=== PATIENT | female | born 1995 | race Caucasian/White ===

== ENCOUNTER 2020-11-09 00:40 | Emergency (ER) | payer OTHER, SELFPAY ==
[2020-11-09 00:43] VITALS: BP 127/86; PULSE 99; RESP 20; TEMP 36.9; O2SAT 99; BMI 33.2
--- NOTE | 2020-11-09 00:59 | ED.URI ---
HPI - URI/Sore Throat General Chief Complaint: Upper Respiratory Symptoms Stated Complaint: Cough/Sore throat Time Seen by Provider: 11/09/20 00:58 Source: patient Mode of arrival: ambulatory Limitations: no limitations History of Present Illness HPI Narrative: Patient with history of asthma complaining of sore throat since yesterday feeling burning in the throat did not use her inhaler patient is saturating 99% at room air with occasional dry cough no fever no chills patient already been vaccinated for COVID-19 3 months ago no other family member sick Related Data Previous Rx's Medication Instructions Recorded azithromycin [Zithromax] 250 mg PO DAILY 4 Days #4 tab 11/09/20 Allergies Allergy/AdvReac Type Severity Reaction Status Date / Time amoxicillin [AMOXICILLIN] Allergy Unknown FAMILY HX Unverified 11/09/20 00:50 OF ALLERGY cephalexin [From KEFLEX] Allergy Unknown HIVES Unverified 11/09/20 00:50 penicillin V Allergy Unknown no known Verified 11/09/20 00:50 reaction but avoids due to strong FHx of PCN saira Penicillins [PENICILLINS] Allergy Unknown FAMILY HX Unverified 11/09/20 00:50 OF ALLERGY-THROAT CLOSES Sulfa (Sulfonamide Allergy Unknown WELTS Unverified 11/09/20 00:50 Antibiotics) [SULFA(SULFONAMIDE ANTIBIOTICS)] Review of Systems Review of Systems: Yes all other systems are reviewed and are negative PMFSH Past Medical History Medical History Asthma PCOS (polycystic ovarian syndrome) SVT (supraventricular tachycardia) Social History Social History Patient : No Physical Exam Vital Signs: Vital Signs: Last Vital Signs Temp 98.5 F 11/09/20 00:43 Pulse 99 11/09/20 00:43 Resp 20 11/09/20 00:43 BP 127/86 11/09/20 00:43 Pulse Ox 99 11/09/20 00:43 Body Mass Index 33.2 Const: General: comfortable and no acute distress Orientation/consciousness: patient oriented x3 HENMT: Head: Yes normal to inspection Ears: hearing grossly normal bilaterally General nose exam: Normal external nose present Face and sinus: Yes normal facial exam Mouth: moist mucous membranes and moist mucous membranes abnormal (Slight erythema in posterior pharynx) Eyes: General: appearance normal, both eyes and all related structures Neck: Neck: Yes normal visual inspection Chest: Chest palpation & inspection: normal inspection of the chest Resp: Effort & Inspection: normal respiratory effort Auscultation: clear to auscultation bilaterally, no crackles and no rales Cardio: Rate: regular rate Rhythm: regular rhythm Heart sounds: S1 normal heart sound present and S2 normal heart sound present Neuro: General: patient oriented x3 MDM - URI/Sore Throat MDM Narrative Medical decision making narrative: Patient with possible strep throat, patient wanted COVID-19 test and although she got vaccine and has no other symptoms will check her for COVID Discharge Plan Discharge Clinical Impression: Pharyngitis Qualifiers: Pharyngitis/tonsillitis etiology: other specified organisms Qualified Code(s): J02.8 - Acute pharyngitis due to other specified organisms Patient Disposition: Home, Self-Care Instructions: Pharyngitis (ED) Additional Instructions: Take antibiotic as prescribed. And follow-up with PCP Prescriptions: New azithromycin [Zithromax] 250 mg tablet 250 mg PO DAILY 4 Days Qty: 4 RF: 0
[2020-11-09] MEDS: guaiFEN/Codeine SF 200/20/10ML 10 ML LIQUID PO (01:29)
[2020-11-09] MEDS: Azithromycin 500 MG TABLET PO (01:29)
[2020-11-09 01:50] LABS: Strep A Nucleic Acid Negative (Negative)
[2020-11-09 02:01] LABS: COVID-19 Test Negative (Negative); IDNOW Serial# 9DD0AD1C
== END 2020-11-09 02:19 | disposition home or self-care (01) ==
LOC: HO.ED 02:13
PROVIDERS: Emergency Provider Internal Medicine
DX: J02.8 Acute pharyngitis due to other specified organisms (principal); Z20.822 Contact with and (suspected) exposure to COVID-19
CPT/HCPCS: 36415; 87635; 87651; 99283

== ENCOUNTER 2021-06-11 22:02 | Emergency (ER) | payer OTHER, SELFPAY ==
[2021-06-11 23:45] VITALS: BP 129/68; PULSE 76; RESP 16; TEMP 37.4; O2SAT 100; BMI 39.0
--- NOTE | 2021-06-11 23:46 | ED.FEMALEGU ---
HPI - Female Genitourinary General Chief complaint: Vaginal Bleeding Stated complaint: heavy vaginal bleeding Time Seen by Provider: 06/12/21 00:56 Source: patient Mode of arrival: ambulatory Limitations: no limitations History of Present Illness HPI Narrative: 25-year-old female presents with heavy vaginal bleeding that started on Sunday. States that she is soaking through multiple tampons and pads per hour with large clots. Is taking a hormone to induce periods as she is trying to get . Patient does report feeling weak and dizzy at times. MD elicited complaint: vaginal bleeding Onset (ago): day(s) (5) Severity: moderate Female Urogenital Radiation: Non-Radiating Severity scale (1-10): 5 Quality of pain: cramping Consistency: intermittent Vaginal discharge: none Vaginal bleeding: heavy and dark red Exacerbating factors: none Associated symptoms: denies other symptoms Sexual activity: Yes Patient : No Related Data Previous Rx's Medication Instructions Recorded azithromycin 250 mg tablet 250 mg PO DAILY 4 Days #4 tab 11/09/20 (Zithromax) Allergies Allergy/AdvReac Type Severity Reaction Status Date / Time amoxicillin [AMOXICILLIN] Allergy Unknown FAMILY HX Unverified 06/11/21 23:49 OF ALLERGY cephalexin [From KEFLEX] Allergy Unknown HIVES Unverified 06/11/21 23:49 penicillin V Allergy Unknown no known Verified 06/11/21 23:49 reaction but avoids due to strong FHx of PCN saira Penicillins [PENICILLINS] Allergy Unknown FAMILY HX Unverified 06/11/21 23:49 OF ALLERGY-THROAT CLOSES Sulfa (Sulfonamide Allergy Unknown WELTS Unverified 06/11/21 23:49 Antibiotics) [SULFA(SULFONAMIDE ANTIBIOTICS)] Review of Systems Review of Systems: Constitutional: No Fever, No Chills ENT/Mouth: No sore throat, No Rhinorrhea Eyes: No Eye Pain, No Redness Cardiovascular: No Chest Pain, No SOB Respiratory: No Cough, No Sputum, No Wheezing Gastrointestinal: positive Nausea, No Vomiting, No Diarrhea, positive abdominal cramping pain, Genitourinary: positive irregular bleeding, No Dysuria, No Urinary Frequency, positive pelvic pain Musculoskeletal: No Myalgias Skin: No rash Neuro: No Weakness, No Headache Psych: No Anxiety/Panic, No Depression Heme/Lymph: No bruising, No Lymphadenopathy Endocrine: No Polyuria, No Polydipsia Yes all other systems are reviewed and are negative [facility] Past Medical History Attestation statement: The following information was validated with the patient. Source: old records reviewed Medical History Asthma PCOS (polycystic ovarian syndrome) SVT (supraventricular tachycardia) Social History Social History Advance Directives: No Patient : No Physical Exam Vital Signs: Vital Signs: Last Vital Signs Temp 99.3 F 06/11/21 23:45 Pulse 76 06/11/21 23:45 Resp 16 06/11/21 23:45 BP 129/68 06/11/21 23:45 Pulse Ox 100 06/11/21 23:45 BMI result Body Mass Index 39.0 Appearance: Alert. Oriented X3. No acute distress. Eyes: Pupils equal, round and reactive to light. ENT: Pharynx normal. Neck: Normal inspection. Neck supple. CVS: Normal heart rate and rhythm. Pulses normal. Respiratory: No respiratory distress. Breath sounds normal. Abdomen: Soft and nontender. Skin: Skin warm and dry. Normal skin color. Normal skin turgor. Extremities: No lower extremity edema. Gait well-balanced well coordinated. Neuro: No motor deficit. No sensory deficit. Cranial nerves 2-12 intact. : External Female Exam: normal external appearance Speculum Exam - Vagina: normal appearance of the vagina, not erythematous, no foreign bodies, no lacerations, no lesions, vaginal bleeding, No tissue present in vagina and no masses Speculum Exam - Cervix: normal appearance of the cervix, normal palpation, Cervical os closed, normal vervical discharge and nontender Bimanual exam- vagina & uterus: normal bimanual exam, consistency normal, normal palpation, No Cervical tenderness present and no cervical motion tenderness Bimanual Exam- Adnexa, other: normal adnexae OB/external & speculum: vaginal bleeding; No no foreign bodies and no tissue noted in vagina Course Course Course Narrative: 25-year-old female presents with heavy vaginal bleeding, bleeding through multiple tampons and pads per hour with large dark red clots accompanied with some weakness and dizziness. States that she is trying to get and is taking Provera every 3 months to induce periods. Patient does not report any other symptoms. 12:07 a.m. pelvic exam completed with ED organic preparation technician as supervisor sewer maintenance. Pelvic exam grossly normal and patient tolerated procedure well. 12:54 a.m. lab values are within normal limits. Plan of care is to discharge home. She will follow-up with OBGYN. Patient verbalized understanding of and agrees to plan of care discharge home. MDM - Female Genitourinary Differential Diagnosis Differential diagnosis: Likely dysmenorrhea Medical Records Attestation: I reviewed the patient's medical records. Lab Data Attestation: I reviewed the patient's lab results. Result diagrams: 06/12/21 00:10 06/12/21 00:10 Labs: Lab Results 06/12/21 06/12/21 06/12/21 Range/Units 00:10 00:10 00:10 WBC 6.6 (4.8-10.8) X10*3/uL RBC 4.75 (4.20-5.50) X10*6/uL Hgb 13.4 (12.0-16.0) g/dl Hct 39.3 (37.0-47.0) % MCV 82.7 (80.0-98.0) fL MCH 28.2 (27.0-33.0) pg MCHC 34.1 (31.0-35.0) g/dl RDW 12.8 (11.0-16.0) % Plt Count 285 (160-400) X10*3/uL MPV 10.4 (9.4-12.3) fL Immature Gran % (Auto) 0.5 H (0.0-0.4) % Neut % (Auto) 45.6 (45-73) % Lymph % (Auto) 37.8 (20-40) % Cassia % (Auto) 11.0 (2-11) % Eos % (Auto) 4.5 H (0-4) % Baso % (Auto) 0.6 (0-2) % Lymph # (Auto) 2.5 (1.2-4.9) X10*3/uL Cassia # (Auto) 0.7 (0.1-1.2) X10*3/uL Eos # (Auto) 0.3 (0.0-0.4) X10*3/uL Baso # (Auto) 0.0 (0.0-0.2) X10*3/uL Abs Immat Gran (auto) 0.03 (0.00-0.03) X10*3/uL Absolute Neuts (auto) 3.0 (2.0-8.3) x10*3/uL Absolute Nucleated RBC 0.000 (0.0-0.012) X10*3/uL Nucleated RBC % (auto) 0.0 (0.0-0.2) /100WBC Sodium 140 (135-145) mmol/L Potassium 3.8 (3.3-5.1) mmol/L Chloride 108 (96-108) mmol/L Carbon Dioxide 24 (22-29) mmol/L Anion Gap 12 (12-20) BUN 12 (9-16) mg/dL Creatinine 0.69 (0.5-1.4) mg/dL Estim Creat Clear Calc 125.0 Estimated GFR > 60 Random Glucose 92 (60-115) mg/dL Calcium 9.2 (8.4-10.2) mg/dL Beta HCG, Quant < 2 mIU/mL COVID-19 ([facility]) Negative (Negative) COVID-19 Clin Com See Note Discharge Plan Discharge Clinical Impression: Dysfunctional uterine bleeding Patient Disposition: Home, Self-Care Instructions: Dysfunctional Uterine Bleeding (ED) Additional Instructions: You were evaluated for heavy menstrual cycle. Please follow-up with OBGYN. Your lab values are within normal limits. Your pelvic exam was normal. Thank you for choosing this emergency department for evaluation. Please follow-up with primary care physician as needed. Return to the emergency department for any new, concerning, or worsening symptoms. Prescriptions: No Action azithromycin [Zithromax] 250 mg tablet 250 mg PO DAILY 4 Days Qty: 4 RF: 0 Interventions: ED Discharge Assessment Last Done: 06/12/21 01:06 Discharge Date/Time: 06/12/21 01:08
[2021-06-12 00:18] LABS: Basophils Percent Auto 0.6 % (0-2); Eosinophils Absolute Auto 0.3 X10*3/uL (0.0-0.4); Eosinophils Percent Auto 4.5 % (0-4); Hematocrit 39.3 % (37.0-47.0); Hemoglobin 13.4 g/dl (12.0-16.0); Imm Gran Abs Auto 0.03 X10*3/uL (0.00-0.03); Imm Gran Pct Auto 0.5 % (0.0-0.4); Lymphocytes Absolute Auto 2.5 X10*3/uL (1.2-4.9); Lymphocytes Percent Auto 37.8 % (20-40); MANUAL DIFF FLAG NO; Mean Corpuscular HGB Conc 34.1 g/dl (31.0-35.0); Mean Corpuscular Hemoglobin 28.2 pg (27.0-33.0); Mean Corpuscular Volume 82.7 fL (80.0-98.0); Mean Platelet Volume 10.4 fL (9.4-12.3); Monocytes Absolute Auto 0.7 X10*3/uL (0.1-1.2); Neutrophils Percent Auto 45.6 % (45-73); Platelet Count 285 X10*3/uL (160-400); Red Blood Count 4.75 X10*6/uL (4.20-5.50); Red Cell Distribution Width 12.8 % (11.0-16.0); White Blood Count 6.6 X10*3/uL (4.8-10.8)
--- NOTE | 2021-06-12 00:21 | PC.NURSE ---
labs drawn,sent to lab. This tech assisted Elizabeth MENDIOLA with pelvic exam. Pt tolerated well. Pt resting and awaiting lab results at this time.
--- NOTE | 2021-06-12 00:25 | PC.NURSE ---
Labs obtained by technology advisor. [employer]AR[employer]ENDER [employer] at bedside for pelvic with technology advisor as assistant chief engineer.
[2021-06-12 00:37] LABS: Anion Gap 12 (12-20); Blood Urea Nitrogen 12 mg/dL (9-16); Calcium 9.2 mg/dL (8.4-10.2); Carbon Dioxide 24 mmol/L (22-29); Chloride 108 mmol/L (96-108); Estimated Glomerular Filt Rate > 60; Glucose Random 92 mg/dL (60-115); Potassium 3.8 mmol/L (3.3-5.1); Sodium 140 mmol/L (135-145)
[2021-06-12 00:41] LABS: COVID-19 Test Negative (Negative)
[2021-06-12 00:44] LABS: HCG Quantitative < 2 mIU/mL
== END 2021-06-12 01:08 | disposition home or self-care (01) ==
PROVIDERS: Nurse Practitioner Family; Emergency Provider Internal Medicine
DX: N93.8 Other specified abnormal uterine and vaginal bleeding (principal); R42 Dizziness and giddiness; Z20.822 Contact with and (suspected) exposure to COVID-19; Z79.899 Other long term (current) drug therapy
CPT/HCPCS: 36415; 80048; 84702; 85025; 87635; 99283; 99284

== ENCOUNTER 2021-11-16 08:47 | Emergency (ER) | payer OTHER, SELFPAY ==
--- NOTE | ~2021-11-16 | CT_ITS ---
Indication: Pain head injury EXAMINATION: CT of the brain and CT of the cervical spine. This CT examination was performed using dose optimization techniques as appropriate, variously including the following: *Automated exposure control *Adjustment of mA and/or kV according to patient size (this includes techniques or standardized protocols for targeted exams where dose is matched to indication/reason for exam; i.e. extremities or head) *Use of iterative reconstruction technique. Radiation dose [address] cervical spine; Axial imaging with coronal and sagittal reformatted images Some straightening of the normal cervical lordosis. This may be due to position or spasm. CT brain; There is no midline shift. There is no mass effect. There is no hemorrhage. The basal cisterns appear patent. The posterior fossa risk grossly within normal limits. There is no extra-axial collection. Ventricular system within normal limits. Diggs-white matter is within normal limits. There is no evidence for fracture on the bone windows. CT/CT cervical spine wo con IMPRESSION: Negative acute noncontrast CT the brain. No fracture or dislocation of the cervical spine. Some straightening of the normal lordosis may be due to position or spasm
--- NOTE | ~2021-11-16 | CT_ITS ---
Indication: Pain head injury EXAMINATION: CT of the brain and CT of the cervical spine. This CT examination was performed using dose optimization techniques as appropriate, variously including the following: *Automated exposure control *Adjustment of mA and/or kV according to patient size (this includes techniques or standardized protocols for targeted exams where dose is matched to indication/reason for exam; i.e. extremities or head) *Use of iterative reconstruction technique. Radiation dose 591 and [address] cervical spine; Axial imaging with coronal and sagittal reformatted images Some straightening of the normal cervical lordosis. This may be due to position or spasm. CT brain; There is no midline shift. There is no mass effect. There is no hemorrhage. The basal cisterns appear patent. The posterior fossa risk grossly within normal limits. There is no extra-axial collection. Ventricular system within normal limits. Diggs-white matter is within normal limits. There is no evidence for fracture on the bone windows. CT/CT head/brain wo con IMPRESSION: Negative acute noncontrast CT the brain. No fracture or dislocation of the cervical spine. Some straightening of the normal lordosis may be due to position or spasm
[2021-11-16 09:02] VITALS: BP 125/75; PULSE 86; RESP 99; TEMP 36.6; O2SAT 18; BMI 39.0
[2021-11-16 09:15] VITALS: PULSE 89; RESP 18; O2SAT 99
[2021-11-16 10:22] LABS: UPreg QC Valid YES; Urine Pregnancy NEGATIVE (NEGATIVE)
[2021-11-16] MEDS: Ibuprofen 800 MG TABLET PO (11:30)
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
== END 2021-11-16 14:15 | disposition home or self-care (01) ==
PROVIDERS: Physician Assistant; Emergency Provider Emergency Medicine
DX: S06.0X0A Concussion without loss of consciousness, initial encounter (principal); S13.4XXA Sprain of ligaments of cervical spine, initial encounter; W20.8XXA Other cause of strike by thrown, projected or falling object, initial encounter; Y93.89 Activity, other specified; Y92.211 Elementary school as the place of occurrence of the external cause; Y99.0 Civilian activity done for income or pay
CPT/HCPCS: 70450; 72125; 81025; 99284

== ENCOUNTER 2022-06-09 15:57 | Emergency (ER) | payer OTHER, SELFPAY ==
--- NOTE | ~2022-06-09 | XR_ITS ---
EXAMINATION: XR KNEE, LEFT CLINICAL INFORMATION: Knee pain COMPARISON: None TECHNIQUE: Four views of the left knee. FINDINGS: Bones and soft tissues are normal. No fracture or joint effusion. Alignment is anatomic. Joint spaces are well maintained. No abnormal soft tissue calcification. XR/XR knee LT 4V IMPRESSION: Normal left knee.
[2022-06-09 17:35] VITALS: BP 128/76; PULSE 88; RESP 18; TEMP 36.7; O2SAT 100; BMI 41.0
--- NOTE | 2022-06-09 17:35 | ED.LOWEXIN ---
HPI - Extremity Injury (Lower) General Chief Complaint: Extremity Injury, Lower <Vicki Chavez CNP - Last Filed: 06/09/22 17:42> Stated Complaint: thigh injury? <Vicki Chavez CNP - Last Filed: 06/09/22 17:42> Time Seen by Provider: 06/09/22 22:06 <Vicki Chavez CNP - Last Filed: 06/09/22 17:42> Source: patient <SELVIN Seals - Last Filed: 06/10/22 00:05> Mode of arrival: ambulatory <SELVIN Seals Last Filed: 06/10/22 00:05> Limitations: no limitations <SELVIN Seals - Last Filed: 06/10/22 00:05> History of Present Illness HPI Narrative: This is a 26-year-old female no significant medical history presenting to the emergency department with complaints of pain behind left knee and pain to the medial aspect of knee pain has been going on since around 13:00 today, patient tells me that she was in an escape room, she twisted her leg and started experiencing pain at times radiates into her left buttocks. Worse with ambulation and weight-bearing better at rest. Patient tells me she is having intermittent tingling to left lower extremity however no numbness. Denies fevers, chills, blunt trauma, chest pain, shortness of breath, nausea, vomiting, headache, vision changes, dizziness. Has not had any previous issues with the left knee in the past. <SELVIN Seals - Last Filed: 06/10/22 00:05> Related Data Home Medications: Previous Rx's Medication Instructions Recorded azithromycin 250 mg tablet 250 mg PO DAILY 4 days #4 tabs 11/09/20 (Zithromax) cyclobenzaprine 5 mg tablet 5 mg PO TID 5 days #15 tabs 11/16/21 ketorolac 10 mg tablet 10 mg PO TID PRN pain 5 days #15 06/10/22 tabs prednisone 20 mg tablet 40 mg PO DAILY 5 days #10 tabs 06/10/22 <Vicki Chavez CNP - Last Filed: 06/09/22 17:42> Allergies/Adverse Reactions: Allergies Allergy/AdvReac Type Severity Reaction Status Date / Time amoxicillin [AMOXICILLIN] Allergy Unknown FAMILY HX Verified 06/09/22 17:41 OF ALLERGY cephalexin [From KEFLEX] Allergy Unknown HIVES Verified 06/09/22 17:41 penicillin V Allergy Unknown no known Verified 06/09/22 17:41 reaction but avoids due to strong FHx of PCN saira Penicillins [PENICILLINS] Allergy Unknown FAMILY HX Verified 06/09/22 17:41 OF ALLERGY-THROAT CLOSES Sulfa (Sulfonamide Allergy Unknown WELTS Verified 06/09/22 17:41 Antibiotics) [SULFA(SULFONAMIDE ANTIBIOTICS)] <Vicki Chavez CNP - Last Filed: 06/09/22 17:42> Review of Systems Review of Systems: Constitutional : No Weight loss, No Fever, No Chills, No Fatigue, No Malaise ENT/Mouth : No sore throat, No Rhinorrhea Eyes: No Eye Pain, No Swelling, No Redness Cardiovascular : No Chest Pain, No SOB, No Dyspnea on Exertion, No Orthopnea, No Edema, No Palpitations Respiratory : No Cough, No Sputum, No Wheezing Gastrointestinal : No Nausea, No Vomiting, No Diarrhea, No Constipation, No abdominal Pain, No Hematochezia, No Melena Genitourinary : No Dysuria, No Urinary Frequency, No Hematuria, Musculoskeletal : + joint pain, No Myalgias, No Joint Swelling Skin : No Skin Lesions, No rash Neuro : No Weakness, No Numbness, No Dizziness, No Headache Psych : No Anxiety/Panic, No Depression All other systems reviewed and are negative <SELVIN Seals - Last Filed: 06/10/22 00:05> Yes all other systems are reviewed and are negative <SELVIN Seals - Last Filed: 06/10/22 00:05> [facility] Past Medical History Attestation statement: The following information was validated with the patient. <SELVIN Seals - Last Filed: 06/10/22 00:05> Source: old records reviewed and nursing notes reviewed <SELVIN Seals - Last Filed: 06/10/22 00:05> Medical History: Medical History Asthma PCOS (polycystic ovarian syndrome) SVT (supraventricular tachycardia) <Vicki Marie SANTOSH Chavez - Last Filed: 06/09/22 17:42> Social History Social History: Social History Smoked in Last 30 Days: No Use of substances other than those prescribed or required for medical reasons: No Advance Directives: No Advance Directives Information Provided: No Patient : No <Vicki BlancSANTOSH posadas - Last Filed: 06/09/22 17:42> Physical Exam Vital Signs: Vital Signs: Last Vital Signs Temp 98.7 F 06/09/22 20:43 Pulse 92 06/09/22 20:43 Resp 17 06/09/22 20:43 BP 117/68 06/09/22 20:43 Pulse Ox 98 06/09/22 20:43 O2 Del Method 06/09/22 20:43 BMI result Body Mass Index 41.0 <Vicki BlancSANTOSH posadas - Last Filed: 06/09/22 17:42> Vital Signs: Last Vital Signs Temp 98.7 F 06/09/22 20:43 Pulse 92 06/09/22 20:43 Resp 17 06/09/22 20:43 BP 117/68 06/09/22 20:43 Pulse Ox 98 06/09/22 20:43 O2 Del Method 06/09/22 20:43 BMI result Body Mass Index 41.0 vss <SELVIN Seals - Last Filed: 06/10/22 00:05> Appearance: Alert.? Oriented X3.? No acute distress.? Head: Normocephalic, atraumatic, no step-offs or deformities Eyes: Pupils equal, round and reactive to light.? ENT: Pharynx normal.? Neck: Normal inspection.? Neck supple.? CVS: Normal heart rate and rhythm.? Pulses normal.? Respiratory: No respiratory distress.? Breath sounds normal.? Abdomen: Soft and nontender.? Skin: Skin warm and dry.? Normal skin color.? Normal skin turgor.? Extremities: No lower extremity edema.? No calf ttp. 5/5 strength to bilateral upper and lower extremities 2+ popliteal pulses, anterior tibialis, posterior tibialis, dorsalis pedis pulses equal bilateral. Full range of motion to bilateral knees. However, patient reports discomfort with range of motion of left knee. Negative valgus, varus, Esther's bilaterally. Patient ambulatory however limping to favor her right side. No step-offs or deformities, no laxity, no footdrop bilaterally. Back: No midline tenderness, no C-spine tenderness, full range of motion, no CVA tenderness bilaterally Neuro: Oriented X 3.? No motor deficit.? No sensory deficit. CN 2-12 intact <SELVIN Seals - Last Filed: 06/10/22 00:05> Course Course Course Narrative: This is an RME: Additional HPI, ROS, PE not included below will be deferred to primary provider. Patient is a 26-year-old female who presents to the emergency department with complaints of traumatic Left knee s/p a twisting injury earlier today, felt a pop, having pain at rest and made worse with weight bearing, states unable to walk, sitting in wheelchair. Pain localized to medial knee with diffuse throbbing. denies numbness, tingling, deformity. Plan: XR left knee, ibuprofen <Vicki Chavez CNP - Last Filed: 06/09/22 17:42> Reevaluation(s) Reevaluation #1: X-ray of the left knee unremarkable. <SELVIN Seals - Last Filed: 06/10/22 00:05> Time: 22:53 <SELVIN Seals - Last Filed: 06/10/22 00:05> Reevaluation #2: D-dimer negative musculoskeletal pain. Patient's history and physical examination not consistent with DVT. At this time patient will be discharged home with Toradol for pain. Educated on rice. Gave her Jack wrap, crutches. Advised to follow-up with the orthopedic team. Explained her she may require an MRI for further intervention and treatment to look at ligament and tenderness injuries. Educated patient on diagnosis and treatment plan, answered all question, patient verbalizes understanding. At this time patient will be discharged home, advised to return with new or worsening symptoms. Educated on worrisome signs and symptoms and when to return. At this time I feel comfortable discharge home. <SELVIN Seals - Last Filed: 12/31/22 00:05> Time: 00:04 <SELVIN Seals - Last Filed: 06/10/22 00:05> Medications Administered Discontinued Medications Generic Name Dose Route Start Last Admin Trade Name Freq PRN Reason Stop Dose Admin Ibuprofen 600 mg 06/09/22 17:42 06/09/22 17:45 Ibuprofen 600 Mg Tablet PO 06/09/22 17:43 600 mg ONCE ONE Administration Ketorolac Tromethamine 30 mg 06/09/22 22:37 06/09/22 23:02 Ketorolac Tromethamine 30 Mg/Ml Vial IM 06/09/22 22:38 30 mg ONCE ONE Administration <Vicki Chavez CNP - Last Filed: 06/09/22 17:42> Medications Administered Discontinued Medications Generic Name Dose Route Start Last Admin Trade Name Freq PRN Reason Stop Dose Admin Ibuprofen 600 mg 06/09/22 17:42 06/09/22 17:45 Ibuprofen 600 Mg Tablet PO 06/09/22 17:43 600 mg ONCE ONE Administration Ketorolac Tromethamine 30 mg 06/09/22 22:37 06/09/22 23:02 Ketorolac Tromethamine 30 Mg/Ml Vial IM 06/09/22 22:38 30 mg ONCE ONE Administration <SELVIN Seals - Last Filed: 06/10/22 00:05> Medical Decision Making Medical Decision Making [facility] Narrative: 2512 26-year-old female presents with left sided posterior knee pain status post twisting her lower extremity in a escape room PE significant for No lower extremity edema.? No calf ttp. 5/5 strength to bilateral upper and lower extremities 2+ popliteal pulses, anterior tibialis, posterior tibialis, dorsalis pedis pulses equal bilateral. Full range of motion to bilateral knees. However, patient reports discomfort with range of motion of left knee. Negative valgus, varus, Esther's bilaterally. Patient ambulatory however limping to favor her right side. No step-offs or deformities, no laxity, no footdrop bilaterally. Concerns for possible ligament or tendon injury. Unlikely fracture dislocation. Low suspicion for PE. Images were obtained from triage. I added a D-dimer as pain does go into the left eye. <SELVIN Seals - Last Filed: 06/10/22 00:05> Lab Data Labs: Lab Results 06/09/22 Range/Units 23:35 D-Dimer High Sensitivty 200 NG/ML <Vicki Chavez CNP - Last Filed: 06/09/22 17:42> Lab Results 06/09/22 Range/Units 23:35 D-Dimer High Sensitivty 200 NG/ML <SELVIN Seals - Last Filed: 06/10/22 00:05> Critical Care Time Critical Care Time Critical Care Time: No <SELVIN Seals - Last Filed: 06/10/22 00:05> Discharge Plan Discharge Clinical Impression: Knee pain, left <Vicki Chavez CNP - Last Filed: 06/09/22 17:42> Patient Disposition: Home, Self-Care <Vicki Chavez CNP - Last Filed: 06/09/22 17:42> Instructions: Crutch Instructions (ED), Knee Pain (ED), R.I.C.E. Treatment (ED), Heat Pack Application (ED) <Vicki Chavez CNP - Last Filed: 06/09/22 17:42> Additional Instructions: Take your medications as prescribed. If you were prescribed antibiotics today, it is important that you take your medication to their entirety, do not skip any doses, do not finish them early. Follow-up with your primary care provider this week. Follow-up orthopedics. Your x-ray was normal. You may require an MRI for further evaluation to rule out ligament or tendon injury. Return to the emergency department with new or worsening symptoms. Such as fevers, chills, chest pain, shortness of breath, nausea, vomiting, dizziness, headache, vision changes, lethargy In case of emergency call 911 Your D-dimer was negative therefore low suspicion for blood clot. This is likely musculoskeletal pain. I sent Toradol to her pharmacy, please take this medication as prescribed do not take more than the prescribed dose, you tolerated this injection well and the emergency department it is the same medication in an oral form, do not take this with alcohol or other NSAIDs, do not take with ibuprofen. Side-effect include kidney injury and increased risk for bleeding ?XR/XR knee LT 4V IMPRESSION: Normal left knee. <Vicki Chavez CNP - Last Filed: 06/09/22 17:42> Prescriptions: New ketorolac 10 mg tablet 10 mg PO TID PRN (Reason: pain) 5 Days Qty: 15 0RF Rx Instructions: Tolerated IM in the department prednisone 20 mg tablet 40 mg PO DAILY 5 Days Qty: 10 0RF No Action azithromycin [Zithromax] 250 mg tablet 250 mg PO DAILY 4 Days Qty: 4 0RF cyclobenzaprine 5 mg tablet 5 mg PO TID 5 Days Qty: 15 0RF <Vicki Chavez CNP - Last Filed: 06/09/22 17:42> Referrals: [facility] [Provider Group] - 1 week Physician,Unknown J [Primary Care Provider] - 2 days <Vicki Chavez CNP - Last Filed: 06/09/22 17:42> Stand Alone Forms: Work/School Release <Vicki Chavez CNP - Last Filed: 06/09/22 17:42>
[2022-06-09] MEDS: Ibuprofen 600 MG TABLET PO (17:45)
[2022-06-09 20:43] VITALS: BP 117/68; PULSE 92; RESP 17; TEMP 37.1; O2SAT 98
[2022-06-09] MEDS: Ketorolac Tromethamine 30 MG/ML VIAL IM (23:02)
[2022-06-09 23:58] LABS: D Dimer High Sensitivity 200 NG/ML
--- NOTE | 2022-06-10 00:31 | PC.NURSE ---
PT reports 6/10 pain. PT refused PO morphine as ordered, provider notified.
== END 2022-06-10 00:52 | disposition home or self-care (01) ==
PROVIDERS: Physician Assistant; Emergency Provider Emergency Medicine
DX: M25.562 Pain in left knee (principal); Z79.899 Other long term (current) drug therapy
CPT/HCPCS: 36415; 73564; 85379; 96372; 99284; J1885